=== PATIENT | male | born 1945 | race Caucasian/White ===

== ENCOUNTER → 2016-11-10 | Outpatient (CLI) | payer MEDICARE ==
[~2016-11-10] MED LIST: ASPI81TA83 OR; CALTRATE 600 + D PO; MULTIVIT PO; SIMV20TA2 OR; VIT D 2000 PO; ZEBE5TAB OR
--- NOTE | 2016-11-10 14:40 | REP ---
TWO CHEST: COMPARISON: 07/04/2007 as well as other prior exams. There is mild biapical pleural thickening. There is mild fibrotic scarring, which is stable. There is no acute infiltrate. The heart is normal in size. The mediastinal silhouette is unchanged. There is mild calcification of the thoracic aorta. There is curvature of the thoracic spine convex to the right with mild degenerative changes. IMPRESSION: Stable chronic findings. No acute pulmonary disease. Signed by Eric Pollock MD 11/10/2016 04:54 P
--- NOTE | 2016-11-10 15:30 | ECGEPIP ---
Stationary ECG Study [facility] Test Date: 2016-11-10 Pat Name: LO ISRAEL Department: Room: - Gender: M Clerk General Office: [place] : 1945 Requested By: JACQUELIN Lieberman Order Number: [id number] Reading MD: Sherman Coates Measurements Intervals [place] Rate: 49 P: 43 WI: 171 QRS: 61 QRSD: 130 T: 59 QT: 438 QTc: 396 Interpretive Statements SINUS BRADYCARDIA, Otherwise within normal limits. Decreased heart rate compared with 03/06/2012 and 811 hours. Electronically Signed On 11-10-2016 15:30:03 EDT by Sherman Coates
== END ==
LOC: M EKG 13:30
PROVIDERS: ATTEND Ophthalmology
DX: I48.91 Unspecified atrial fibrillation (principal); I10 Essential (primary) hypertension

== ENCOUNTER → 2016-11-24 | Day surgery (SDC) | payer MEDICARE ==
--- NOTE | 2016-11-17 02:22 | CR ---
DATE OF CONSULTATION: 11/16/2016 PREOPERATIVE CONSULTATION FOR: Dr. Alexis Freire for cataract extractions scheduled 11/24/2016, and 12/22/2016 at [facility]. Dear Dr. Freire, Thank you for asking me to see Mr. Harshal Gordon in consultation prior to his cataract extractions. As you know, Mr. Gordon is a 70-year-old gentleman with a past medical history of hypertension, hyperlipidemia, paroxysmal atrial fibrillation who reports he has been in his usual state of health. The patient has a previous history of atrial fibrillation presenting with rapid ventricular rate. This is felt to be a one-time episode related to hot, humid weather. He ended up in the emergency room. He follows with cardiology. He is maintained only on aspirin and bisoprolol for rate control. The patient is clinically asymptomatic. He is not exercising regularly, but he is active. The patient has sinus allergies, but reports they are presently controlled. We will use saline spray as needed. Patient has advanced kyphoscoliosis. He admits pain is tolerable and he rarely takes any medicine for it. The patient has a history of chronic obstructive pulmonary disease (COPD). He quit smoking in 2012 after smoking half a pack for 30 years. He does not use his inhaler and is not interested in further evaluation, treatment. The patient has hypertension. Denies chest pain, palpitations, syncope, presyncope. Review of systems otherwise negative. PAST MEDICAL HISTORY: 1. Osteopenia. 2. Polio as a child. 3. Peptic ulcer disease of the age of 21. 4. Left inguinal hernia repair 1995. 5. Hematuria, negative cystoscopy 1995. 6. Tobacco abuse, quit in January 2013 after smoking a half a pack for 30 years. 7. COPD by chest x-ray and with PFTs 05/28/2014, showing mild obstructive pulmonary impairment with an FEV-1 of 2.5, 65% of expected with 19% improvement. 8. Treatment is refused. The patient does have a bronchodilator. 9. Hyperlipidemia. 10. Sigmoid adenomatous colonic polyps. Last colonoscopy 10/29/2015, within normal limits. Repeat 5 years. 11. Hypertension. 12. Hyperglycemia. 13. Kyphoscoliosis. 14. Lung nodule 2010 with repeat imaging showing stability. 15. Paroxysmal atrial fibrillation 03/18 with normal stress testing and echocardiogram. 16. Right knee Lyme disease with an effusion, followup 2014. MEDICATIONS: - aspirin 325 daily - bisoprolol 5 mg 1/4 of a tablet daily - Caltrate plus D twice a day - multivitamin daily - ProAir as needed - probiotic daily - Refresh eye drops as needed - saline nasal spray as needed - simvastatin 20 mg daily - vitamin D 2000 international units daily SOCIAL HISTORY: The patient has quit smoking January 2013 after smoking half-a-pack for 30 years. Alcohol: Three beers a week. FAMILY HISTORY: Father of heart disease at 83. Mother of septicemia at 90. She had a history of hypertension. A brother committed suicide. Another sister had hypertension. Another sister of Alzheimer's disease. PHYSICAL EXAMINATION: No acute distress. Weight is 145 with a body mass index (BMI) of 25, blood pressure 122/62, heart rate is 58 and regular, oxygen saturation 100% after exertion. No acute distress. HEENT: Head is normocephalic. Neck is supple. Pupils equal and reactive to light. He does wear eyeglasses. Conjunctivae are not injected. Sclerae anicteric. Vision grossly normal. Ears: He has a scant amount of cerumen bilaterally. External auditory canals otherwise normal. Tympanic membranes slightly dull. Tongue is midline. No thyromegaly, jugular venous distention (JVD), carotid bruits, cervical lymphadenopathy. RESPIRATORY: He has advanced kyphoscoliosis. Decreased breath sounds, no expiratory wheezes. CARDIOVASCULAR: Regular rate and rhythm, no irregular beats. ABDOMEN: Asymmetric. He has a lower well-healed abdominal incision, no hepatosplenomegaly. EXTREMITIES: Right lower extremity is larger than left. He reports this is chronic and unchanged. : Deferred. NEUROLOGIC: Alert and oriented. Cranial nerves II-XII are intact. LABORATORY DATA: 11/10/2016: Normal medical profile. From 06/08/2016: The patient had a normal CBC, A1c, magnesium, medical profile, lipids, thyroid, UA. He had a normal vitamin D February 2016. EKG [facility] 11/10/2016: Sinus bradycardia rate of 49, axis of 61 degrees, normal ME, QRS, QTC interval, normal R-wave progression, essentially normal EKG and unchanged compared to previous EKG. Chest x-ray 11/10/2016: Chronic stable findings, mild fibrosis curvature of the thoracic spine with mild degenerative joint disease (DJD). IMPRESSION: Mr. Harshal Gordon is a 70-year-old gentleman with cardiovascular risk factors positive for hypertension, hyperlipidemia, age. Has no signs or symptoms indicative of cardiovascular ischemia and is felt to be at low risk from cardiovascular complications, which can be further minimized by the followin. Paroxysmal atrial fibrillation. Rare, rate controlled on bisoprolol. He takes this in the evening. Anticoagulated only with aspirin. He will not take this the morning of surgery. 2. Hyperlipidemia. Treated with simvastatin. He will take this the evening prior to surgery. 3. Osteopenia. Continue calcium and D, but hold morning of surgery. 4. Colonic polyps. Up-to-date with colonoscopy, clinically asymptomatic. 5. Sinus allergies. I have encouraged use of saline spray perioperatively. 6. Hypertension. Controlled with just bisoprolol. He will take this as usual the evening prior to surgery. Thank you very much for this consultation. Please call with questions or concerns.
[~2016-11-24] VITALS: Ht 157.5 cm; Wt 65.8 kg
[~2016-11-24] MED LIST changes: +ACETYLCHOLINE OPHTH SOLN 1% 2ML As Ordered ONE; +ASPI32ECTA PO; +BALANCED SALT IRRIGATION SOLUTION 500ML BAG (FOR OR EYE MACHINE) As Ordered ONE; +BISO10TA PO; +CALCTAB7 PO; +CEFUROXIME 1MG/0.1ML INTRACAMERAL INJ As Ordered ONE; +HEALON DUET (HEALON 10MG/ML 0.55ML & HEALON ENDOCOAT 30MG/ML 0.85ML) As Ordered ONE; +LIDOCAINE 0.75%/EPINEPHRINE 0.025% IN BSS 1ML SYR INTRACAMERAL (OR ONLY) As Ordered ONE; +MIDAZOLAM INJ 2 MG/2 ML VIAL (J2250) As Ordered ONE; +MULT1TAB10 PO; +OFLOXACIN 0.3 % (OCUFLOX) OPTH SOL 5ML OD ONE; +PHENYLEPHRINE 2.5% OPHTH SOL 2ML OD ONE; +POVIDONE-IODINE 5% OPHTH PREP SOL 30ML As Ordered ONE; +PROBCAP4 PO; +PROPARACAINE 0.5% OPHTH SOL 15ML OD ONE; +SIMV20TA2 PO; +TOBRADEX OPHTH OINT 3.5 GM As Ordered ONE; +TROPICAMIDE 1% OPHTH SOLN 2 ML OD ONE; +VITA200016 PO; +fentaNYL 100 MCG/2 ML INJECTION (J3010) As Ordered ONE
[2016-11-24 10:26] VITALS: BP 124/60
--- NOTE | 2016-11-24 13:04 | RO ---
DATE OF PROCEDURE: 11/24/2016 PREOPERATIVE DIAGNOSIS: Visually significant nuclear sclerotic cataract right eye. POSTOPERATIVE DIAGNOSIS: Visually significant nuclear sclerotic cataract right eye. PROCEDURE: Cataract extraction with use of phacoemulsification and placement of intraocular lens AU00T0, 19.0 diopter, right eye. SURGEON: Alexis Freire DO MANAGER QUALITY: ANESTHESIA: Local with monitored anesthesia care (MAC). COMPLICATIONS: None. POSTOPERATIVE CONDITION: Stable. INDICATION FOR SURGERY: Blurred vision right eye affecting patient's activities of daily living. DESCRIPTION OF PROCEDURE: The patient was seen in the preoperative area and properly identified. The correct operative eye was identified and marked. Attention was turned to that eye. The patient received topical antibiotics in the preoperative area. The patient then received topical dilating drops consisting of tropicamide and phenylephrine. The patient was then transferred to the operating room. The correct side was reidentified. The patient received topical anesthetics and antibiotics on the surface of the eye. The eye was prepped and draped in a sterile fashion. The upper and lower eyelids were isolated with Tegaderm tape, and the lids were held open with an adjustable speculum. Using a sideport blade, a paracentesis incision was made. Intraocular preservative-free lidocaine was then injected into the anterior chamber. Viscoelastic was then injected into the anterior chamber through the paracentesis. Using a 2.65 mm sharp-tipped keratome, the anterior chamber was entered via a temporal clear corneal incision. A continuous curvilinear capsulorrhexis was created with the aid of a 26-gauge cystotome and Utrata forceps. Hydrodissection was performed with balanced salt solution (BSS) on a blunt cannula until the nucleus was freely mobile. The crystalline lens was phacoemulsified and aspirated. Additional cohesive viscoelastic was placed into the capsular bag to deepen it. An AU00T0, 19.0 diopter lens was placed into the capsular bag and confirmed by visualizing the continuous curvilinear capsulorrhexis. Additional irrigation and aspiration was used to remove cortical material and remaining viscoelastic. The clear corneal incision was hydrated with BSS on a blunt cannula. The lens was well positioned. The incisions were then tested for leaks and found to be negative. The eye was then palpated for appropriate pressure and adjusted accordingly with BSS. The eyelid speculum was then carefully removed. Tobradex ointment was placed in the eye. An eye patch and shield were then secured over the eye. The patient tolerated the procedure well and was discharged to the recovery unit in a stable condition. RADHA
== END | disposition home or self-care (01) ==
LOC: M SDC 08:03
PROVIDERS: ATTEND Ophthalmology
DX: H25.11 Age-related nuclear cataract, right eye (principal); I48.91 Unspecified atrial fibrillation; Z79.82 Long term (current) use of aspirin; Z79.899 Other long term (current) drug therapy; J44.9 Chronic obstructive pulmonary disease, unspecified
CPT/HCPCS: 66984; J2250; J3010; V2632

== ENCOUNTER → 2016-12-22 | Day surgery (SDC) | payer MEDICARE ==
[~2016-12-22] VITALS: Ht 157.5 cm; Wt 65.8 kg
[~2016-12-22] MED LIST changes: +ACETYLCHOLINE OPHTH SOLN 1% 2ML (MIOCHOL-E) As Ordered ONE; -ACETYLCHOLINE OPHTH SOLN 1% 2ML As Ordered ONE; +D5W/0.2% SODIUM CHLORIDE 250 ML IV ONE; +LIDOCAINE 4% INJ 5 ML AMP As Ordered ONE; +OFLOXACIN 0.3 % (OCUFLOX) OPTH SOL 5ML As Ordered ONE; -OFLOXACIN 0.3 % (OCUFLOX) OPTH SOL 5ML OD ONE; +OFLOXACIN 0.3 % (OCUFLOX) OPTH SOL 5ML OS ONE; -PHENYLEPHRINE 2.5% OPHTH SOL 2ML OD ONE; +PHENYLEPHRINE 2.5% OPHTH SOL 2ML OS ONE; -PROPARACAINE 0.5% OPHTH SOL 15ML OD ONE; +PROPARACAINE 0.5% OPHTH SOL 15ML OS ONE; +TETRACAINE 0.5% OPHTH SOLN 4ML As Ordered ONE; -TROPICAMIDE 1% OPHTH SOLN 2 ML OD ONE; +TROPICAMIDE 1% OPHTH SOLN 2ML OS ONE
[2016-12-22 08:10] VITALS: BP 125/68
--- NOTE | 2016-12-23 07:40 | RO ---
DATE OF PROCEDURE: 12/22/2016 PREOPERATIVE DIAGNOSIS: Visually significant nuclear sclerotic cataract left eye. POSTOPERATIVE DIAGNOSIS: Visually significant nuclear sclerotic cataract left eye. PROCEDURE: Cataract extraction with use of phacoemulsification and placement of intraocular lens Joo AU00T0, 21.5 Diopter left eye. SURGEON: Alexis Freire DO TRANSMISSION BUILDER: ANESTHESIA: Local with monitored anesthesia care (MAC). COMPLICATIONS: None. POSTOPERATIVE CONDITION: Stable. INDICATION FOR SURGERY: Blurred vision left eye affecting patient's activities of daily living. DESCRIPTION OF PROCEDURE: The patient was seen in the preoperative area and properly identified. The correct operative eye was identified and marked. Attention was turned to that eye. The patient received topical antibiotics in the preoperative area. The patient then received topical dilating drops consisting of tropicamide and phenylephrine. The patient was then transferred to the operating room. The correct side was reidentified. The patient received topical anesthetics and antibiotics on the surface of the eye. The eye was prepped and draped in a sterile fashion. The upper and lower eyelids were isolated with Tegaderm tape, and the lids were held open with an adjustable speculum. Using a sideport blade, a paracentesis incision was made. Intraocular preservative-free lidocaine was then injected into the anterior chamber. Viscoelastic was then injected into the anterior chamber through the paracentesis. Using a 2.65 mm sharp-tipped keratome, the anterior chamber was entered via a temporal clear corneal incision. A continuous curvilinear capsulorrhexis was created with the aid of a 26-gauge cystotome and Utrata forceps. Hydrodissection was performed with balanced salt solution (BSS) on a blunt cannula until the nucleus was freely mobile. The crystalline lens was phacoemulsified and aspirated. Additional cohesive viscoelastic was placed into the capsular bag to deepen it. An AU00T0 21.5D lens was placed into the capsular bag and confirmed by visualizing the continuous curvilinear capsulorrhexis. Additional irrigation and aspiration was used to remove cortical material and remaining viscoelastic. The clear corneal incision was hydrated with BSS on a blunt cannula. The lens was well positioned. The incisions were then tested for leaks and found to be negative. The eye was then palpated for appropriate pressure and adjusted accordingly with BSS. The eyelid speculum was then carefully removed. Tobradex ointment was placed in the eye. An eye patch and shield were then secured over the eye. The patient tolerated the procedure well and was discharged to the recovery unit in a stable condition. RADHA
== END | disposition home or self-care (01) ==
LOC: M SDC 06:01
PROVIDERS: ATTEND Ophthalmology
DX: H25.12 Age-related nuclear cataract, left eye (principal); I48.91 Unspecified atrial fibrillation; Z79.82 Long term (current) use of aspirin; J44.9 Chronic obstructive pulmonary disease, unspecified
CPT/HCPCS: 66984; J2250; J3010; V2632

== ENCOUNTER → 2022-02-11 | Outpatient (CLI) | payer MEDICARE ==
[~2022-02-11] MED LIST changes: -ACETYLCHOLINE OPHTH SOLN 1% 2ML (MIOCHOL-E) As Ordered ONE; +ASPI-255 PO; -ASPI32ECTA PO; -BALANCED SALT IRRIGATION SOLUTION 500ML BAG (FOR OR EYE MACHINE) As Ordered ONE; -BISO10TA PO; +BISO10TA13 PO; +CALC-211 PO; -CALCTAB7 PO; -CEFUROXIME 1MG/0.1ML INTRACAMERAL INJ As Ordered ONE; -D5W/0.2% SODIUM CHLORIDE 250 ML IV ONE; -HEALON DUET (HEALON 10MG/ML 0.55ML & HEALON ENDOCOAT 30MG/ML 0.85ML) As Ordered ONE; -LIDOCAINE 0.75%/EPINEPHRINE 0.025% IN BSS 1ML SYR INTRACAMERAL (OR ONLY) As Ordered ONE; -LIDOCAINE 4% INJ 5 ML AMP As Ordered ONE; -MIDAZOLAM INJ 2 MG/2 ML VIAL (J2250) As Ordered ONE; -OFLOXACIN 0.3 % (OCUFLOX) OPTH SOL 5ML As Ordered ONE; -OFLOXACIN 0.3 % (OCUFLOX) OPTH SOL 5ML OS ONE; -PHENYLEPHRINE 2.5% OPHTH SOL 2ML OS ONE; -POVIDONE-IODINE 5% OPHTH PREP SOL 30ML As Ordered ONE; -PROPARACAINE 0.5% OPHTH SOL 15ML OS ONE; -SIMV20TA2 PO; +SIMV20TA22 PO; -TETRACAINE 0.5% OPHTH SOLN 4ML As Ordered ONE; -TOBRADEX OPHTH OINT 3.5 GM As Ordered ONE; -TROPICAMIDE 1% OPHTH SOLN 2ML OS ONE; -fentaNYL 100 MCG/2 ML INJECTION (J3010) As Ordered ONE
== END ==
LOC: M RAD 10:51
PROVIDERS: ATTEND Otolaryngology
DX: R22.1 Localized swelling, mass and lump, neck (principal)

== ENCOUNTER → 2022-02-28 | Outpatient (CLI) | payer MEDICARE | LOC: M RAD 15:53 | PROVIDERS: ATTEND Otolaryngology | DX: M27.40 Unspecified cyst of jaw (principal) ==

== ENCOUNTER → 2022-04-21 | Outpatient (CLI) | payer MEDICARE | LOC: M WHC 13:15 | PROVIDERS: ATTEND Internal Medicine | DX: M81.8 Other osteoporosis without current pathological fracture (principal); M85.89 Other specified disorders of bone density and structure, multiple sites ==

== ENCOUNTER → 2022-07-12 | Outpatient (CLI) | payer MEDICARE | LOC: M PLALAB 14:22 | PROVIDERS: ATTEND Internal Medicine | DX: R06.2 Wheezing (principal); M53.85 Other specified dorsopathies, thoracolumbar region; M47.9 Spondylosis, unspecified ==

== ENCOUNTER → 2022-09-14 | Outpatient (CLI) | payer MEDICARE | LOC: M RAD 10:42 | PROVIDERS: ATTEND Otolaryngology | DX: K11.6 Mucocele of salivary gland (principal) ==

== ENCOUNTER → 2023-09-11 | Outpatient (CLI) | payer MEDICARE | LOC: M RAD 10:25 | PROVIDERS: ATTEND Otolaryngology | DX: K11.6 Mucocele of salivary gland (principal) ==

== ENCOUNTER → 2024-07-22 | Outpatient (REF) | payer MEDICARE | LOC: M LAB REF 12:51 | PROVIDERS: ATTEND Internal Medicine | DX: G31.84 Mild cognitive impairment of uncertain or unknown etiology (principal) ==

== ENCOUNTER → 2025-03-12 | Outpatient (CLI) | payer MEDICARE | LOC: M WHC 10:57 | PROVIDERS: ATTEND Internal Medicine | DX: M81.8 Other osteoporosis without current pathological fracture (principal); M85.851 Other specified disorders of bone density and structure, right thigh; G14 Postpolio syndrome; M41.34 Thoracogenic scoliosis, thoracic region; M41.87 Other forms of scoliosis, lumbosacral region; M47.897 Other spondylosis, lumbosacral region; M47.812 Spondylosis without myelopathy or radiculopathy, cervical region ==

== ENCOUNTER → 2025-03-12 | Outpatient (CLI) | payer MEDICARE | LOC: M PLAIMG 12:00 | PROVIDERS: ATTEND Internal Medicine | DX: G14 Postpolio syndrome (principal); M41.34 Thoracogenic scoliosis, thoracic region; M41.87 Other forms of scoliosis, lumbosacral region; M47.897 Other spondylosis, lumbosacral region; M47.812 Spondylosis without myelopathy or radiculopathy, cervical region ==

== ENCOUNTER → 2025-03-18 | Outpatient (REF) | payer MEDICARE ==
[2025-03-20 09:42] LABS: PROTEIN, TOTAL SO 6.7 g/dL (6.1-8.1)
== END ==
LOC: M LAB REF 18:16
PROVIDERS: ATTEND Internal Medicine
DX: S32.000A Wedge compression fracture of unspecified lumbar vertebra, initial encounter for closed fracture (principal); M80.08XA Age-related osteoporosis with current pathological fracture, vertebra(e), initial encounter for fracture; M54.50 Low back pain, unspecified; Y93.9 Activity, unspecified; Y92.9 Unspecified place or not applicable